=== PATIENT | female | born 1950 | race Caucasian/White ===

== ENCOUNTER → 2017-01-14 | Outpatient (CLI) | payer OTHER ==
[~2017-01-14] MED LIST: CALCIUM 600600 MG PO; CALTRATE-600 W600 MG PO; GLUCOSAMINE; GLUCOSAMINE & C1 CA1 PO; HCTZ 25MG TAB25 MG PO; LISINOPRIL; PRILOSEC 20MG20 MG PO; VICODIN 5/5001 UDTAB PO; ZESTRIL 20MG TA20 MG PO; ZESTRIL30 MG PO
== END ==
LOC: MC.RAD 13:24
DX: Z12.31 Encounter for screening mammogram for malignant neoplasm of breast (principal)

== ENCOUNTER 2017-01-21 13:05 | Day surgery (SDC) | payer OTHER ==
[~2017-01-21] VITALS: Ht 165.1 cm; Wt 93.8 kg
[~2017-01-21 13:05] MED LIST changes: -CALCIUM 600600 MG PO; -GLUCOSAMINE & C1 CA1 PO; -HCTZ 25MG TAB25 MG PO; -PRILOSEC 20MG20 MG PO; -ZESTRIL 20MG TA20 MG PO
[2017-01-21 13:23] VITALS: BP 144/81; PULSE 67; TEMP 98.7
[2017-01-21] MEDS ORDERED: HCTZ 25MG TAB25 MG PO (13:32)
[2017-01-21] MEDS ORDERED: ZESTRIL 20MG TA20 MG PO (13:32)
[2017-01-21] MEDS ORDERED: GLUCOSAMINE & C1 CA1 PO (13:33)
[2017-01-21] MEDS ORDERED: PRILOSEC 20MG20 MG PO (13:33)
[2017-01-21] MEDS ORDERED: CALCIUM 600600 MG PO (13:34)
[2017-01-21 14:59] VITALS: BP 122/63; PULSE 63; TEMP 97.3
[2017-01-21 15:14] VITALS: BP 116/64; PULSE 58
[2017-01-21 15:29] VITALS: BP 115/72; PULSE 56
[2017-01-21 17:09] VITALS: BP 101/60; PULSE 59
== END 2017-01-21 15:45 | disposition home or self-care (01) ==
LOC: SDCO 13:05
DX: Z12.11 Encounter for screening for malignant neoplasm of colon (principal); K57.30 Diverticulosis of large intestine without perforation or abscess without bleeding
CPT/HCPCS: J2250; J3010; J7030

== ENCOUNTER → 2019-06-02 | Outpatient (CLI) | payer MEDICARE, OTHER ==
[~2019-06-02] MED LIST changes: +CALCIUM 600600 MG PO; +GLUCOSAMINE & C1 CA1 PO; +HCTZ 25MG TAB25 MG PO; +PRILOSEC 20MG20 MG PO; +ZESTRIL 20MG TA20 MG PO
== END ==
LOC: MC.RAD 11:24
DX: Z12.31 Encounter for screening mammogram for malignant neoplasm of breast (principal)

== ENCOUNTER → 2021-03-21 | Outpatient (CLI) | payer MEDICARE, OTHER | LOC: COL.RAD 12:49 | DX: N18.32 Chronic kidney disease, stage 3b (principal) ==

== ENCOUNTER 2022-05-06 16:17 | Emergency (ER) | payer MEDICARE, OTHER ==
[~2022-05-06] VITALS: Ht 165.1 cm; Wt 90.9 kg
[2022-05-06 16:37] VITALS: TEMP 97.1
[2022-05-06 17:23] LABS: BASO # 0.1 K/mm3 (0.0-0.2); BASO % 0.5 % (0.0-2.0); EOS # 0.1 K/mm3 (0.0-0.7); EOS % 0.5 % (0.0-4.0); GRAN % 85.6 % (42.2-75.2); HEMATOCRIT 39.9 % (37.0-47.0); LYMPH # 0.7 K/mm3 (1.2-3.4); LYMPH % 7.8 % (20.0-51.0); MEAN CELL VOLUME 92 fl (80.0-100.0); MEAN CORPUSCULAR HEMOGLOBIN 30 pg (27-31); MEAN CORPUSCULAR HGB CONC 33 g/dl (33.0-37.0); MEAN PLATELET VOLUME 10.6 fl (7.4-10.4); MONO # 0.5 K/mm3 (0.1-0.6); MONO % 5.4 % (1.7-9.3); PLATELET COUNT 232 K/mm3 (130-400); RED BLOOD COUNT 4.35 M/mm3 (4.10-5.30); REDCELL DISTRIBUTION WIDTH-CV 13.6 % (11.5-14.5)
[2022-05-06 18:03] LABS: ALBUMIN 4.2 gm/dL (3.4-4.8); BILIRUBIN,TOTAL 0.4 mg/dL (0.2-1.2); C-REACTIVE PROTEIN 0.14 mg/dL (0.00-0.50); CALCIUM 9.8 mg/dL (8.4-10.2); CREATININE, serum 1.47 mg/dL (0.57-1.11); POTASSIUM 3.8 mmol/L (3.5-4.5); TOTAL PROTEIN 7.5 gm/dL (6.2-8.1)
[2022-05-06 19:23] VITALS: BP 97/70; PULSE 84
== END 2022-05-06 19:23 | disposition home or self-care (01) ==
LOC: COL.ER 16:17
PROVIDERS: Emergency Medicine
DX: R11.2 Nausea with vomiting, unspecified (principal); T36.0X5A Adverse effect of penicillins, initial encounter; Z20.822 Contact with and (suspected) exposure to COVID-19; Z88.1 Allergy status to other antibiotic agents
CPT/HCPCS: J2405; J2550; J7030

== ENCOUNTER → 2022-05-18 | Outpatient (CLI) | payer MEDICARE, OTHER | LOC: MC.RAD 05-07 11:00 | DX: Z12.31 Encounter for screening mammogram for malignant neoplasm of breast (principal) ==

== ENCOUNTER → 2024-03-17 | Outpatient (CLI) | payer MEDICARE, OTHER | LOC: MC.RAD 09:29 | DX: Z12.31 Encounter for screening mammogram for malignant neoplasm of breast (principal) ==